=== PATIENT | male | born 1960 | race Hispanic/Latino ===

== ENCOUNTER → 2018-03-08 | Outpatient (CLI) | payer OTHER ==
[~2018-03-08] MED LIST: METR500P18 IV
== END | disposition home or self-care (01) ==
LOC: RAH 08:53
PROVIDERS: ATTEND Internal Medicine
DX: N26.1 Atrophy of kidney (terminal) (principal)
CPT/HCPCS: 76700

== ENCOUNTER 2018-03-24 06:00 | Day surgery (SDC) | payer OTHER ==
[~2018-03-24] VITALS: Ht 175.3 cm; Wt 93.0 kg
[~2018-03-24 06:00] MED LIST changes: -METR500P18 IV; +SODIUM CHLORIDE 0.9% 1000ML 1,000 ML IV ONE
[2018-03-24 06:24] VITALS: BP 110/74
[2018-03-24] MEDS ORDERED: PROPOFOL 10 MG/ML 20ML VIAL IV ONE ×2 (08:03→08:04)
[2018-03-24 08:36] VITALS: BP 97/44
[2018-03-24 08:41] VITALS: BP 107/58
[2018-03-24 09:06] VITALS: BP_SYST 98; BP_DIAS 50; BP_DIAS 58
== END 2018-03-24 09:05 | disposition home or self-care (01) ==
LOC: ENDO 06:00 → DAH 06:00 → ENDO 09:05
PROVIDERS: ATTEND Internal Medicine
DX: K63.5 Polyp of colon (principal); K62.89 Other specified diseases of anus and rectum; K62.1 Rectal polyp; K56.2 Volvulus; K31.89 Other diseases of stomach and duodenum; I10 Essential (primary) hypertension; Z98.890 Other specified postprocedural states; M81.0 Age-related osteoporosis without current pathological fracture; Z80.0 Family history of malignant neoplasm of digestive organs; Z79.899 Other long term (current) drug therapy; Z68.31 Body mass index [BMI] 31.0-31.9, adult
CPT/HCPCS: 43239; 43249; 45380; 45385; 88305; A4606; J2704 ×2; J7030